=== PATIENT | male | born 1995 | race African-American/Black ===

== ENCOUNTER 2023-11-22 00:22 | Inpatient (IN) | payer MEDICAID, OTHER ==
[~2023-11-22] VITALS: Ht 170.2 cm; Wt 84.5 kg
[2023-11-22] MEDS ORDERED: DiphenhydrAMINE HCL 50 MG/ML VIAL IM ONE (00:45)
[2023-11-22] MEDS ORDERED: LORazepam 2 MG/ML VIAL IM ONE (00:45)
[2023-11-22] MEDS ORDERED: HALOPERIDOL LACTATE 5 MG/ML VIAL IM ONE (00:45)
[2023-11-22 02:15] LABS: PH,URINE DRUG SCREEN 5.5 (5.0-8.0)
[2023-11-22 02:22] LABS: AMPHET/METH SCREEN,URINE NEGATIVE (NEGATIVE); BARBITURATE SCREEN, URINE NEGATIVE (NEGATIVE); BENZODIAZEPINES SCREEN,URINE NEGATIVE (NEGATIVE); CANNABINOID SCREEN,URINE NEGATIVE (NEGATIVE); COCAINE SCREEN,URINE POSITIVE (NEGATIVE); METHADONE SCREEN, URINE NEGATIVE (NEGATIVE); OPIATE SCREEN,URINE NEGATIVE (NEGATIVE); PHENCYCLIDINE SCREEN,URINE NEGATIVE (NEGATIVE)
[2023-11-22 02:33] LABS: ALCOHOL, URINE DRUG SCREEN POSITIVE (NEGATIVE)
[2023-11-22] MEDS ORDERED: HALOPERIDOL 5 MG TABLET PO PRN (04:30)
[2023-11-22] MEDS ORDERED: ZOLPIDEM TARTRATE 10 MG TABLET PO PRN (04:30)
[2023-11-22] MEDS ORDERED: LORazepam 1 MG TABLET PO PRN (04:30)
[2023-11-22 04:34] LABS: BASOPHILS % (AUTO) 0.5 % (0.0-2.0); EOSINOPHILS % (AUTO) 0 % (1.0-6.0); HEMATOCRIT 41.3 % (41-53); HEMOGLOBIN 13.7 g/dL (13.5-17.5); LYMPHOCYTES # (AUTO) 1.7 K/uL (1.0-4.8); LYMPHOCYTES % (AUTO) 18.2 % (22.0-44.0); MEAN CORPUSCULAR HEMOGLOBIN 33.3 pg (26.0-34.0); MEAN CORPUSCULAR HGB CONC 33.2 G/dL (31.0-37.0); MEAN CORPUSCULAR VOLUME 100 fL (80-100); MONOCYTES # (AUTO) 0.9 K/uL (0.1-1.0); MONOCYTES % (AUTO) 10.1 % (2.0-9.0); NEUTROPHILS # (AUTO) 6.6 K/uL (1.8-7.7); NEUTROPHILS % (AUTO) 71.2 % (40.0-70.0); PLATELET COUNT (AUTO) 197 K/uL (150-450); RED BLOOD CELL COUNT(AUTO) 4.13 MIL/uL (4.50-5.90); WHITE BLOOD COUNT (AUTO) 9.2 K/uL (4.5-11.0)
[2023-11-22 04:50] LABS: ALCOHOL, BLOOD (SERUM) 227 mg/dL (0-10)
[2023-11-22 04:51] LABS: ANION GAP 12 mmol/L (8-16); CALCIUM, TOTAL 8.4 mg/dL (8.8-10.5); CARBON DIOXIDE 24 mmol/L (22-29); CHLORIDE 108 mmol/L (98-107); CREATININE 0.95 mg/dL (0.60-1.30); GLOMERULAR FILTR. RATE CALC > 60 mL/min (>60); GLUCOSE,RANDOM 101 mg/dL (70-110); POTASSIUM 3.4 mmol/L (3.5-5.1); SODIUM SERUM 144 mmol/L (136-145); UREA NITROGEN, BLOOD 6 mg/dL (7-18)
[2023-11-22 04:54] LABS: ALANINE AMINOTRANSFERASE 51 U/L (12-78); ALBUMIN 4.2 g/dL (3.4-5.0); ALKALINE PHOSPHATASE 77 U/L (46-116); ASPARTATE AMINOTRANSFERASE 64 U/L (15-37); BILIRUBIN,TOTAL 0.4 mg/dL (0.1-1.0); TOTAL PROTEIN, SERUM 7.1 g/dL (6.4-8.2)
[2023-11-22] MEDS ORDERED: POTASSIUM CHLORIDE 20 MEQ ER TABLET PO ONE (06:45)
[2023-11-22 07:29] LABS: COVID AG,FIA SOURCE NASAL SWAB
[2023-11-22 07:49] LABS: SARS-COV2 (COVID) ANTIGEN,FIA Negative (Negative)
[2023-11-22 11:15] VITALS: BP 113/79; PULSE 108; RESP 18; TEMP 98.4
[2023-11-22] MEDS ORDERED: LOPERAMIDE HCL 2 MG CAPSULE PO PRN (12:00)
[2023-11-22] MEDS ORDERED: MAG HYDROX/ALUMINUM HYD/SIMETH ES 30 ML SUSPENSION UDCUP PO PRN (12:00)
[2023-11-22] MEDS ORDERED: CloNIDine HCL 0.1 MG TABLET PO PRN (12:00)
[2023-11-22] MEDS ORDERED: MAGNESIUM HYDROXIDE SUSPENSION 30 ML UDCUP PO PRN (12:00)
[2023-11-22] MEDS ORDERED: BACITRACIN 28 GM OINTMENT TP PRN (12:00)
[2023-11-22] MEDS ORDERED: DOCUSATE SODIUM 100 MG CAPSULE PO PRN (12:00)
[2023-11-22] MEDS ORDERED: ALBUTEROL SULFATE HFA 90 MCG/PUFF 8 GM INHALER IH PRN (12:00)
[2023-11-22] MEDS ORDERED: ONDANSETRON HCL 4 MG TABLET PO PRN (12:00)
[2023-11-22] MEDS ORDERED: ACETAMINOPHEN 325 MG TABLET PO PRN (12:00)
[2023-11-22] MEDS ORDERED: OMEPRAZOLE 20 MG CAPSULE PO PRN (12:00)
[2023-11-22] MEDS ORDERED: BENZOCAINE/MENTHOL LOZENGE PO PRN (12:00)
[2023-11-22] MEDS ORDERED: PETROLATUM,WHITE 28 GM JELLY TP PRN (12:00)
[2023-11-22] MEDS ORDERED: IBUPROFEN 600 MG TABLET PO PRN (12:00)
[2023-11-22 14:37] VITALS: RESP 18; O2SAT 98
[2023-11-22] MEDS: TraMADol HCL 50 MG TABLET PO PRN (14:37)
[2023-11-22 16:00] VITALS: RESP 18
[2023-11-22] MEDS: DIVALPROEX SODIUM 500 MG DR TABLET PO SCH (18:00)
[2023-11-22] MEDS: RisperiDONE 1 MG TABLET PO SCH (18:00)
[2023-11-22] MEDS: LITHIUM CARBONATE 300 MG CAPSULE PO SCH (18:00)
[2023-11-22 20:00] VITALS: RESP 18; O2SAT 97
[2023-11-23] MEDS: LITHIUM CARBONATE 300 MG CAPSULE PO SCH (08:05)
[2023-11-23] MEDS: RisperiDONE 1 MG TABLET PO SCH ×2 (08:05→17:22)
[2023-11-23] MEDS: DIVALPROEX SODIUM 500 MG DR TABLET PO SCH (08:05)
[2023-11-23 09:01] VITALS: RESP 18
[2023-11-23] MEDS: TraMADol HCL 50 MG TABLET PO PRN ×2 (09:01→17:23)
[2023-11-23 09:45] VITALS: BP 116/75; PULSE 60; RESP 18; TEMP 98.1; O2SAT 97
[2023-11-23 10:01] VITALS: RESP 18
[2023-11-23 17:19] VITALS: BP 123/75; PULSE 76; RESP 18; TEMP 98.3
[2023-11-23 17:20] VITALS: BP 123/75; PULSE 76; RESP 18; TEMP 98.3; O2SAT 98
[2023-11-23 20:18] VITALS: BP 130/72; PULSE 76; RESP 18; TEMP 98; O2SAT 99
[2023-11-24 08:22] VITALS: BP 113/66; PULSE 85; RESP 17; TEMP 98.2; O2SAT 98
[2023-11-24] MEDS: RisperiDONE 1 MG TABLET PO SCH (09:00)
[2023-11-24] MEDS ORDERED: RISP1TAB98 PO (09:29)
== END 2023-11-24 10:26 | disposition home or self-care (01) | DRG 753 ==
LOC: EMS 00:24 → B3A 09:28
PROVIDERS: ADMIT Psychiatry & Neurology Psychiatry; ATTEND Psychiatry & Neurology Psychiatry
DX: F31.9 Bipolar disorder, unspecified (principal); F10.129 Alcohol abuse with intoxication, unspecified; F20.9 Schizophrenia, unspecified; F14.10 Cocaine abuse, uncomplicated; Z20.822 Contact with and (suspected) exposure to COVID-19; F41.9 Anxiety disorder, unspecified; Y90.9 Presence of alcohol in blood, level not specified; M79.672 Pain in left foot; G47.00 Insomnia, unspecified; W18.39XA Other fall on same level, initial encounter; K59.00 Constipation, unspecified; Z78.1 Physical restraint status; Z71.41 Alcohol abuse counseling and surveillance of alcoholic; Z71.51 Drug abuse counseling and surveillance of drug abuser; Y93.89 Activity, other specified; Y92.89 Other specified places as the place of occurrence of the external cause; Y99.8 Other external cause status
CPT/HCPCS: 73700; 80053; 80307; 85025; G0480; J1200; J1630; J2060